=== PATIENT | female | born 1950 | race Caucasian/White ===

== ENCOUNTER 2016-11-25 14:00 | Outpatient (RCR) | payer OTHER | END 2016-11-26 08:48 | disposition still patient (30) | LOC: MKS.ESL.OT 14:00 | DX: G23.2 Striatonigral degeneration (principal) ==

== ENCOUNTER 2017-02-11 13:00 | Outpatient (RCR) | payer BC | END 2017-02-15 | disposition home or self-care (01) | LOC: MKS.ESL.OT | DX: G31.85 Corticobasal degeneration (principal) ==

== ENCOUNTER → 2017-04-25 | Outpatient (CLI) | payer BC | LOC: MC.RAD 08:25 | DX: Z12.31 Encounter for screening mammogram for malignant neoplasm of breast (principal); N63 Unspecified lump in breast ==

== ENCOUNTER → 2017-05-26 | Outpatient (RCR) | payer BC | END | disposition home or self-care (01) | LOC: MKS.ESL.OT | DX: R27.8 Other lack of coordination (principal) ==

== ENCOUNTER 2017-08-25 13:00 | Outpatient (RCR) | payer BC | END 2017-08-31 | LOC: MKS.ESL.OT | DX: G31.85 Corticobasal degeneration (principal) ==

== ENCOUNTER 2017-10-04 14:45 | Outpatient (RCR) | payer BC | END 2017-10-20 14:59 | disposition still patient (30) | LOC: MKS.ESL.OT 14:45 | DX: G23.2 Striatonigral degeneration (principal) ==

== ENCOUNTER → 2017-12-12 | Outpatient (CLI) | payer MEDICARE, OTHER | LOC: COL.RAD 08:33 | DX: K21.9 Gastro-esophageal reflux disease without esophagitis (principal); K44.9 Diaphragmatic hernia without obstruction or gangrene; K22.8 Other specified diseases of esophagus; F45.8 Other somatoform disorders ==

== ENCOUNTER 2018-01-11 13:00 | Outpatient (RCR) | payer MEDICARE, OTHER | END 2018-01-18 | disposition home or self-care (01) | LOC: MKS.ESL.OT | DX: G31.85 Corticobasal degeneration (principal) | CPT/HCPCS: G8984-GO; G8985-GO ==

== ENCOUNTER → 2018-12-11 | Outpatient (CLI) | payer MEDICARE, OTHER | LOC: COL.RAD 10:30 | DX: M25.512 Pain in left shoulder (principal) ==

== ENCOUNTER → 2019-05-28 | Outpatient (CLI) | payer MEDICARE, OTHER | LOC: MC.RAD 13:32 | DX: Z12.31 Encounter for screening mammogram for malignant neoplasm of breast (principal) ==

== ENCOUNTER → 2019-11-29 | Outpatient (CLI) | payer MEDICARE, OTHER | LOC: COL.LAB 12:32 | DX: R05 Cough (principal) ==